=== PATIENT | male | born 1990 | race Caucasian/White ===

== ENCOUNTER 2025-04-25 09:29 | Emergency (ER) | payer SELFPAY ==
[~2025-04-25] VITALS: Ht 172.7 cm; Wt 90.0 kg
[2025-04-25] MEDS: SODIUM CHLORIDE 0.9% 1,000 ML IV ONE (10:24)
[2025-04-25] MEDS: HALOPERIDOL LACTATE 5MG/ML VIAL IM ONE (10:30)
[2025-04-25] MEDS: DIPHENHYDRAMINE 50MG/ML VIAL IV ONE (10:30)
[2025-04-25 11:04] LABS: HEMATOCRIT. 42.3 % (42.0-52.0); HEMOGLOBIN. 14.3 g/dL (14.0-18.0); MEAN PLATELET VOLUME 9.1 fl (7.4-10.4); PLATELET 241 x1000/uL (130-400); RED BLOOD CELL COUNT 4.58 mill/uL (4.7-6.1); RED CELL DISTRIBUTION WIDTH 13.3 % (11.6-14.6)
[2025-04-25 11:22] LABS: CREATININE 1.3 mg/dL (0.6-1.3); UREA NITROGEN BLOOD 17 mg/dL (9-23)
[2025-04-25 11:23] LABS: TROPONIN I HIGH SENSITIVITY < 4 ng/L (3.0-53)
[2025-04-25 12:56] LABS: BAND% 6.0 % (1.0-6.0); LYMPHOCYTES % MANUAL 8.0 % (20.0-50.0); MONOCYTES % MANUAL 6.0 % (2.0-8.0); NEUTROPHILS % MANUAL 80.0 % (45.0-75.0); PLATELET ESTIMATE NORMAL
[2025-04-25 13:50] VITALS: O2SAT 99
[2025-04-25 20:34] LABS: CLARITY URINE CLEAR (CLEAR); COLOR URINE YELLOW (YELLOW); GLUCOSE URINE NEGATIVE (NEGATIVE); KETONES URINE NEGATIVE (NEGATIVE); LEUKOCYTE ESTERASE URINE NEGATIVE (NEGATIVE); NITRITE URINE NEGATIVE (NEGATIVE); OCCULT BLOOD URINE NEGATIVE (NEGATIVE); PH URINE 6.5 (4.5-8.0); PROTEIN URINE NEGATIVE (NEGATIVE); SPECIFIC GRAVITY URINE 1.002 (1.005-1.030); UROBILINOGEN URINE 0.2 E.U./dL (0.2-1.0)
[2025-04-25 20:41] LABS: *AMPHETAMINES SCREEN URINE PRESUMPTIVE POSITIVE (NEGATIVE); *BARBITURATES SCREEN URINE NEGATIVE (NEGATIVE); *BENZODIAZEPINES SCREEN URINE PRESUMPTIVE POSITIVE (NEGATIVE); *COCAINE SCREEN URINE NEGATIVE (NEGATIVE); CANNABINOID URINE SCREEN NEGATIVE (NEGATIVE); ECSTASY MDMA SCREEN URINE NEGATIVE (NEGATIVE); METHADONE URINE SCREEN NEGATIVE (NEGATIVE); OPIATES URINE SCREEN NEGATIVE (NEGATIVE); PHENCYCLIDINE URINE SCREEN NEGATIVE (NEGATIVE)
[2025-04-26] MEDS: ARIPIPRAZOLE 5MG TABLET PO SCH (12:24)
[2025-04-26 12:50] VITALS: BP 108/76; PULSE 91; RESP 16; TEMP 36.9; O2SAT 96
== END 2025-04-26 13:15 ==
LOC: EDBD 09:29 → ER 09:29
DX: R45.1 Restlessness and agitation (principal); F23 Brief psychotic disorder; F14.10 Cocaine abuse, uncomplicated; Z78.1 Physical restraint status; Z79.899 Other long term (current) drug therapy
CPT/HCPCS: 80305; 80048; 81003; 80307; 80329; 80320; 82550; 85025; 84484; 36415; 93005; 96372; 96374; 99285; 87426; J1200; J1630; J7030; Z7610; A4606; G0480